=== PATIENT | female | born 1990 | race Caucasian/White ===

== ENCOUNTER 2021-08-14 08:02 | Emergency (ER) | payer OTHER, SELFPAY ==
--- NOTE | ~2021-08-14 | US_ITS ---
EXAMINATION: ULTRASOUND EXTREMITY NONVASCULAR CLINICAL INFORMATION: Right axillary pain. Rule out adenopathy versus abscess. COMPARISON: None TECHNIQUE: Grayscale and color imaging of the right axilla using a linear transducer FINDINGS: There is a small complex fluid collection seen just deep to the skin measuring 1.1 x 0.5 x 0.8 cm questionable for a small abscess. There are several small right axillary lymph nodes. The largest measures 1.6 x 0.7 x 1.3 cm. These demonstrate normal ultrasound morphology and flow. US/US extremity nonvascular IMPRESSION: Small complex superficial fluid collection questionable for an abscess. Small right axillary lymph nodes.
[2021-08-14 09:01] VITALS: BP 126/72; PULSE 67; RESP 18; TEMP 36.3; O2SAT 99; BMI 23.3
--- NOTE | 2021-08-14 12:03 | ED.SKABFB ---
HPI - Skin/Abscess/Foreign Bdy General Chief complaint: Skin/Abscess/Foreign Body Stated complaint: abscess under rt arm Time Seen by Provider: 08/14/21 09:31 Source: patient Mode of arrival: ambulatory Limitations: no limitations History of Present Illness complaint: abscess/boil Onset (ago): day(s) (For the past few days worse today) Location: RUE (Axillary aspect) Severity: severe Severity scale (1-10): >10 Quality: aching and constant Pain Consistency: constant Relieving factors: none Exacerbating factors: palpation Context: none Associated symptoms: denies other symptoms Treatments prior to arrival: none Related Data Previous Rx's Medication Instructions Recorded cephalexin 500 mg capsule 500 mg PO Q6H 10 Days #40 cap 08/14/21 doxycycline monohydrate 100 mg 100 mg PO BID 10 Days #20 cap 08/14/21 capsule ibuprofen 800 mg tablet 800 mg PO Q8H PRN #14 tab 08/14/21 oxycodone 5 mg tablet 5 mg PO Q6H PRN #14 tab 08/14/21 Allergies Allergy/AdvReac Type Severity Reaction Status Date / Time sulfamethoxazole Allergy Hives Verified 08/14/21 09:05 [From Bactrim] trimethoprim [From Bactrim] Allergy Hives Verified 08/14/21 09:05 Review of Systems Review of Systems: Constitutional : No Fever, No Chills, Cardiovascular : No Chest Pain, No SOB Respiratory : No Dyspnea Gastrointestinal : No abdominal pain Musculoskeletal : No Joint Swelling Skin : positive fluctuance with surrounding erythema, no skin laceration, No Foreign bodies, No rash Neuro : No Weakness, No Numbness/tingling Psych : No SI/HI/thoughts of self injury Yes all other systems are reviewed and are negative [facility] Past Medical History Attestation statement: The following information was validated with the patient. Medical History No known health problems Social History Social History Advance Directives: No Advance Directives Information Provided: No Patient : No Physical Exam Vital Signs: Vital Signs: Last Vital Signs Temp 97.4 F 08/14/21 09:01 Pulse 67 08/14/21 09:01 Resp 18 09/14/21 09:01 BP 126/72 08/14/21 09:01 Pulse Ox 99 08/14/21 09:01 Body Mass Index 23.3 vital signs have been reviewed as normal and appeared to be correct. Blood pressure normal. Heart rate normal. Respiration rate normal. Temperature normal. Oxygen saturation normal. Appearance: Alert. Oriented X3. No acute distress. Head: Normal external exam. Normocephalic. Atraumatic. Eyes: PERRLA. EOMI. Conjunctiva and sclera normal. Eyelids normal. ENT: Pharynx normal. Uvula midline. Moist mucous membranes. Neck: Normal inspection. Neck supple. FROM. Right axillary lymphadenopathy. No additional lymphadenopathy noted. No meningeal signs. CVS: Normal heart rate and rhythm. Heart sound normal. Pulses normal throughout. No murmurs/rales/gallops. Respiratory: No respiratory distress. Painless inspiration. Breath sounds normal. No wheezes/rales/rhonchi noted. Chest nontender. No accessory muscle usage noted or decreased air movement noted. Back: Full range of motion noted. Skin: Patient with lymphadenopathy to the right axillary with superficial pustules a mild soft tissue swelling not consistent with fluctuance. Unsure if this is an actual abscess. The rest of the Skin warm and dry. Normal skin color. Normal skin turgor. No additional rashes/lesions/lacerations noted. Extremities: Extremities exhibit normal range of motion. Extremities nontender. Neuro: Oriented X 3. No motor deficit. No sensory deficit. Reflexes normal. Normal steady gait. No focal neuro deficits noted. Vascular: + radial pulses Normal cap refill. No cyanosis noted to upper extremity nails Course Course Course Narrative: 30-year-old female presenting to the ED with complaints of erythema and questioning abscesses to her right axillary for the past few days worse today. On exam patient has lymphadenopathy to the right axillary and she does have erythema and soft tissue swelling although there is no obvious fluctuance. I am unable to differentiate the erythema in the soft tissue swelling between abscess versus lymph nodes therefore ultrasound was obtained and ultrasound revealed small complex superficial fluid collection questionable for an abscess and small right axillary lymph nodes noted. Therefore I attempted a needle aspiration and mild bloody drainage was excreted. No purulent drainage noted. Patient tolerated procedure well. No complications. No additional labs or imaging indicated at this time. I instructed patient to apply warm compresses and will DC home with antibiotics and symptomatic treatment and a work note and instructions return if any new or worsening symptoms to follow up with primary care provider. Patient understands agrees with this plan. MDM - Skin/Abscess/Foreign Bdy Imaging Data Ultrasound of right axillary: Attestation: I personally reviewed and interpreted this imaging study as follows: Radiologist's impression: FINDINGS: There is a small complex fluid collection seen just deep to the skin measuring 1.1 x 0.5 x 0.8 cm questionable for a small abscess. There are several small right axillary lymph nodes. The largest measures 1.6 x 0.7 x 1.3 cm. These demonstrate normal ultrasound morphology and flow. US/US extremity nonvascular IMPRESSION: Small complex superficial fluid collection questionable for an abscess. Small right axillary lymph nodes. Procedures Abscess I/D Site: upper extremity (Right axillary aspect) Side (if applicable): right Technique: needle aspiration Sent for culture/gram staining?: No Irrigation: Yes Packing used?: none Complications: other (No complications) Discharge Plan Discharge Clinical Impression: Cellulitis, Abscess of skin or subcutaneous tissue Patient Disposition: Home, Self-Care Instructions: Cellulitis (ED), Abscess (ED), Warm Compress or Soak (ED) Prescriptions: New ibuprofen 800 mg tablet 800 mg PO Q8H PRN (Reason: pain) Qty: 14 RF: 0 doxycycline monohydrate 100 mg capsule 100 mg PO BID 10 Days Qty: 20 RF: 0 cephalexin 500 mg capsule 500 mg PO Q6H 10 Days Qty: 40 RF: 0 oxycodone 5 mg tablet 5 mg PO Q6H PRN (Reason: pain) Qty: 14 RF: 0 Referrals: Physician,None [Primary Care Provider] - 2 days (your pcp) Stand Alone Forms: Work/School Release Print Language: [place]
[2021-08-14] MEDS: Ibuprofen 800 MG TABLET PO (12:13)
== END 2021-08-14 12:16 | disposition home or self-care (01) ==
PROVIDERS: Emergency Provider Internal Medicine
DX: L02.411 Cutaneous abscess of right axilla (principal); L03.111 Cellulitis of right axilla; Z79.899 Other long term (current) drug therapy
CPT/HCPCS: 10060; 76882; 99283; 99284

== ENCOUNTER 2021-09-23 17:26 | Emergency (ER) | payer OTHER, SELFPAY ==
[2021-09-23 17:31] VITALS: BP 140/73; PULSE 82; RESP 18; TEMP 36.9; O2SAT 100; BMI 23.3
[2021-09-23 18:14] VITALS: BP 125/75
--- NOTE | 2021-09-23 18:27 | ED.SKABFB ---
HPI - Skin/Abscess/Foreign Bdy General Chief complaint: Skin/Abscess/Foreign Body Stated complaint: Abscess Time Seen by Provider: 09/23/21 18:27 Source: patient Mode of arrival: ambulatory Limitations: no limitations History of Present Illness HPI narrative: 30 y/o female presenting with multiple painful bumps under her right underarm that started about 3-4 days ago. She reports some smaller areas of pustules that she was able to drain, but she was unable to express any fluid out of the 2 larger lesions. She denies any fever or chills. She has had a similar presentation back in August, was treated with p.o. antibiotics with complete resolution. complaint: abscess/boil and lesion Onset (ago): day(s) (4) Tetanus up to date: yes Location: RUE Severity: moderate Severity scale (1-10): 5 Quality: aching Pain Consistency: intermittent Relieving factors: none Exacerbating factors: palpation and movement Context: none Associated symptoms: denies other symptoms Treatments prior to arrival: attempted to drain pus at home Related Data Previous Rx's Medication Instructions Recorded cephalexin 500 mg capsule 500 mg PO Q6H 10 Days #40 cap 08/14/21 doxycycline monohydrate 100 mg 100 mg PO BID 10 Days #20 cap 08/14/21 capsule ibuprofen 800 mg tablet 800 mg PO Q8H PRN #14 tab 08/14/21 oxycodone 5 mg tablet 5 mg PO Q6H PRN #14 tab 08/14/21 cephalexin 500 mg capsule 500 mg PO Q6H 7 Days #28 cap 09/23/21 doxycycline monohydrate 100 mg 100 mg PO BID #14 cap 09/23/21 capsule Allergies Allergy/AdvReac Type Severity Reaction Status Date / Time sulfamethoxazole Allergy Hives Verified 09/23/21 17:30 [From Bactrim] trimethoprim [From Bactrim] Allergy Hives Verified 09/23/21 17:30 Review of Systems Review of Systems: Constitutional: No Fever, No Chills Respiratory: No Cough, No Sputum Gastrointestinal: No Nausea, No Vomiting Musculoskeletal: No joint pain, No Myalgias Skin: + Skin Lesions, No rash Psych: No Anxiety/Panic, No Depression Heme/Lymph: No Bruising, No Lymphadenopathy PMFSH Past Medical History Medical History No known health problems Social History Social History Advance Directives: No Advance Directives Information Provided: No Patient : No Physical Exam Vital Signs: Vital Signs: Last Vital Signs Temp 98.5 F 09/23/21 17:31 Pulse 82 09/23/21 17:31 Resp 18 09/23/21 17:31 BP 125/75 09/23/21 18:14 Pulse Ox 100 09/23/21 17:31 Body Mass Index 23.3 Appearance: Alert. Oriented X3. No acute distress. HEENT: normal inspection CVS: Normal heart rate and rhythm. Pulses normal. Respiratory: No respiratory distress. Skin: Skin warm and dry. Normal skin color. Normal skin turgor. No rashes. Extremities: right axillary area with 2 small tender lesions about 1.5 cm round, indurated and slightly erythematous. No central fluctuance appreciated scattered small pustules surrounding Neuro: Oriented X 3. No motor deficit. No sensory deficit. Course Course Course Narrative: 30-year-old female presenting with right axillary lesions consistent with early abscesses. No areas of fluctuance. Unable to perform I and D at this time. The lesions are quite small and there is minimal cellulitic changes to the skin. Will plan to repeat her treatment of Keflex and doxycycline as this work successfully for her in the past. Stable for discharge home. Supportive care discussed. Discharge Plan Discharge Clinical Impression: Abscess of skin or subcutaneous tissue Qualifiers: Site of cutaneous abscess: extremity Site of cutaneous abscess of extremity: axilla Laterality: right Qualified Code(s): L02.411 - Cutaneous abscess of right axilla Patient Disposition: Home, Self-Care Instructions: Abscess (ED) Additional Instructions: Use warm compresses to her right underarm several times a day Take the prescribed antibiotics as directed If you worsening signs or symptoms of infection despite antibiotic use come back to the ER for further evaluation Prescriptions: New cephalexin 500 mg capsule 500 mg PO Q6H 7 Days Qty: 28 RF: 0 doxycycline monohydrate 100 mg capsule 100 mg PO BID Qty: 14 RF: 0 No Action ibuprofen 800 mg tablet 800 mg PO Q8H PRN (Reason: pain) Qty: 14 RF: 0 doxycycline monohydrate 100 mg capsule 100 mg PO BID 10 Days Qty: 20 RF: 0 cephalexin 500 mg capsule 500 mg PO Q6H 10 Days Qty: 40 RF: 0 oxycodone 5 mg tablet 5 mg PO Q6H PRN (Reason: pain) Qty: 14 RF: 0
== END 2021-09-23 19:03 | disposition home or self-care (01) ==
PROVIDERS: Emergency Provider Internal Medicine
DX: L02.411 Cutaneous abscess of right axilla (principal); Z79.899 Other long term (current) drug therapy
CPT/HCPCS: 99283; 99284